=== PATIENT | female | born 1935 | race Caucasian/White ===

== ENCOUNTER 2016-09-30 08:23 | Emergency (ER) | payer MEDICAID, MEDICARE ==
[~2016-09-30] VITALS: Ht 154.9 cm; Wt 90.7 kg
[2016-09-30] MEDS ORDERED: CITA10TA5 (08:45)
[2016-09-30] MEDS ORDERED: GABA-283 PO (08:45)
[2016-09-30] MEDS ORDERED: SB L81TA (08:45)
[2016-09-30] MEDS ORDERED: Allegra-D (08:45)
[2016-09-30] MEDS ORDERED: PANT40TA2 (08:45)
[2016-09-30] MEDS ORDERED: LISI10TA4 (08:45)
[2016-09-30] MEDS ORDERED: LEVO88TA3 (08:45)
--- NOTE | 2016-09-30 10:07 | REP ---
RIGHT KNEE SERIES: Five views right knee performed. Possible nondisplaced fracture is seen of the medial patellar facet on the sunrise view. No other fracture or dislocation is seen. There does appear to be a small joint effusion. IMPRESSION: Possible subtle nondisplaced fracture medial patellar facet. Small joint effusion. Signed by Capo Hoffman MD 09/30/2016 03:53 P
[2016-09-30] MEDS ORDERED: ACET30TAB PO (10:22)
[2016-09-30 10:33] VITALS: BP 136/67
== END 2016-09-30 10:38 | disposition home or self-care (01) ==
LOC: M ED 10:23
DX: M25.561 Pain in right knee (principal)